=== PATIENT | female | born 1960 | race Caucasian/White ===

== ENCOUNTER → 2017-11-24 | Outpatient (CLI) | payer SELFPAY ==
--- NOTE | 2017-11-24 14:51 | US ---
EXAMINATION TYPE: US venous doppler duplex LE LT DATE OF EXAM: 11/24/2017 2:42 PM COMPARISON: NONE CLINICAL HISTORY: M79.662 LT LEG AND CALF PAIN. SIDE PERFORMED: Left TECHNIQUE: The lower extremity deep venous system is examined utilizing real time linear array sonog cassie with graded compression, doppler sonography and color-flow sonography. VESSELS IMAGED: External Iliac Vein (EIV) Common Femoral Vein Deep Femoral Vein Greater Saphenous Vein * Femoral Vein Popliteal Vein Small Saphenous Vein * Proximal Calf Veins (* superficial vessels) Grayscale, color doppler, spectral doppler imaging performed of the deep veins of the lower extremity . There is normal flow, compressibility, vascular waveforms. Left Leg: Negative for DVT IMPRESSION: 1. No evidence for DVT at this time.
== END | disposition home or self-care (01) ==
LOC: RADUSWWP 14:00
PROVIDERS: ATTEND Family Medicine
DX: M79.662 Pain in left lower leg (principal)

== ENCOUNTER → 2024-04-01 | Outpatient (CLI) | payer SELFPAY ==
--- NOTE | 2024-04-01 08:45 | USB ---
Reason for Exam: Clinical finding. Patient History: Menarche at age 10. First Full-Term at age 23. Maternal aunt had breast cancer. Risk Values: Lsia 5 year model risk: 1.5%. NCI Lifetime model risk: 6.6%. Technique: Method: Targeted. Prior Study Comparison: 01/20/2006 Bilateral Screening Mammogram, [facility]. Findings: The medial section of the breast of the right breast, the axilla of the right breast and the retroareolar of the right breast were scanned. No solid or cystic masses are identified. No ultrasound abnormality to account for patient's reported pain. Patient reportedly is refusing mammography. There is a percentage of ultrasound occult findings which may be visible by mammography. Alternatively, screening MRI could be considered. Overall Assessment: Negative, BI-RAD 1 Electronically signed and approved by: Sam Desouza D.O. Radiologis
== END | disposition home or self-care (01) ==
LOC: RADUSWWP 07:54
PROVIDERS: ATTEND Family Medicine
DX: N64.4 Mastodynia (principal); Z80.3 Family history of malignant neoplasm of breast